=== PATIENT | female | born 1980 | race Caucasian/White ===

== ENCOUNTER 2016-07-14 23:15 | Inpatient (IN) | payer OTHER ==
[2016-07-15 00:29] LABS: BASOPHIL 0.3 % (0-2.0); MCH 31.1 pg (25.7-33.7); MEAN CELL VOLUME 91.4 fl (80-96); MEAN PLT VOLUME 10.5 fl (7.5-11.1); NEUTROPHILS 70.1 % (42.8-82.8); PLATELET COUNT 174 K/MM3 (134-434); RDW 13.4 % (11.6-15.6); WHITE BLOOD COUNT 8.1 K/mm3 (4.0-10.0)
[2016-07-15 00:46] VITALS: BMI 37.1
[2016-07-15 00:48] LABS: INR 1.02 (0.82-1.09); PROTHROMBIN TIME (PATIENT) 11.2 SEC (9.98-11.88)
[2016-07-15 00:51] LABS: ACTIVATED PTT 28.4 SECONDS (26.9-34.4)
[2016-07-15 00:54] LABS: CALCIUM 9.3 mg/dL (8.5-10.1); COCKROFT - GAULT 251.2515; CREATININE 0.5 mg/dL (0.55-1.02)
[2016-07-15] MEDS ORDERED: ELECTROLYTE-148 SOLN 500 ML IV ONE (01:06)
[2016-07-15] MEDS ORDERED: CITRIC ACID/SODIUM CITRATE 30 ML UNIT-DOSE CUP PO ONE (01:06)
--- NOTE | 2016-07-15 01:13 | HP ---
Past Medical History - Admission Chief Complaint: Rupture of membrane History of Present Illness: 36 yo @ 37 weeks gestation, admitted for rupture of membrane. She had one previous and now desires repeat and BTL. She denies any contractions pain nor vaginal bleeding. History Source: Patient Limitations to Obtaining History: No Limitations - Past Medical History ...: 3 ...Para: 1 ...Term: 1 ...Spon : 1 ...LMP: 10/18/15 ... Weeks Gestation by Dates: 38.5 ...EDC by Dates: 07/24/16 ...EDC by Sono: 07/29/16 - Past Surgical History Past Surgical History: Yes: Hx Myomectomy: No Hx Transabdominal Cerclage: No - Smoking History Smoking history: Never smoked Have you smoked in the past 12 months: No Aproximately how many cigarettes per day: 0 - Alcohol/Substance Use Hx Alcohol Use: No History of Substance Use: reports: None - Social History History of Recent Travel: No Home Medications - Allergies Allergies/Adverse Reactions: Allergies Allergy/AdvReac Type Severity Reaction Status Date / Time No Known Allergies Allergy Verified 07/12/16 15:02 - Home Medications Home Medications: Ambulatory Orders Vit/Iron Fumarate/FA [ Tablet] 1 each PO DAILY 07/12/16 Family Disease History - Family Disease History Family History: Unremarkable Review of Systems - Review of Systems Constitutional: reports: No Symptoms Eyes: reports: No Symptoms HENT: reports: No Symptoms Neck: reports: No Symptoms Cardiovascular: reports: No Symptoms Respiratory: reports: No Symptoms Gastrointestinal: reports: No Symptoms Genitourinary: reports: Other (Leakage of fluid) Breasts: reports: No Symptoms Reported Musculoskeletal: reports: No Symptoms Integumentary: reports: No Symptoms Neurological: reports: No Symptoms Psychiatric: reports: No Symptoms Pain Intensity: 1 Physical Exam - Maternity Vital Signs: Vital Signs Temperature 97.6 F 07/15/16 00:29 Pulse Rate 72 07/15/16 00:29 Respiratory Rate 20 07/15/16 00:29 Blood Pressure 128/74 07/15/16 00:29 O2 Sat by Pulse Oximetry (%) Constitutional: Yes: Well Nourished Eyes: Yes: Conjunctiva Clear HENT: Yes: Atraumatic Neck: Yes: Supple Cardiovascular: Yes: Regular Rate and Rhythm Lungs: Clear to auscultation - Abdominal Exam/OB Number of Fetuses: Single Presentation: Vertex Contractions: No - Vaginal Exam/OB Vaginal Bleediing: No Dilatation (cm): 0 Effacement (%): 50 Amniotic Membrane Status: Ruptured Amniotic Fluid: Yes: Clear - Labs Lab Results: CBC, BMP 07/15/16 00:20 07/15/16 00:20
[2016-07-15] MEDS ORDERED: morphine SULFATE/Preservative Free 0.5 MG/ML (1cc Syringe) EP ONE (01:23)
[2016-07-15 02:58] LABS: VENOUS BLOOD GAS HCO3 21.5 meq/L (19-25)
[2016-07-15] MEDS: D5W-LR W/ 20 UNITS OXYTOCIN 1,000 ML IV SCH ×2 (03:00→08:30)
[2016-07-15] MEDS ORDERED: METHYLERGONOVINE MALEATE 0.2 MG/1 ML AMP IM PRN (03:01)
[2016-07-15 03:02] LABS: VENOUS PH 7.34 (7.32-7.42)
--- NOTE | 2016-07-15 03:04 | OP ---
Operative Note - Note: Operative Date: 07/15/16 Pre-Operative Diagnosis: Previous / Rupture of membrane / Multiparity Operation: Repeat Low Transverse / BTL Post-Operative Diagnosis: Same as Pre-op Surgeon: Linsey Amos Multiple Wire Sawyer: Lorenza Orosco Anesthesia: Spinal Specimens Removed: Placenta Estimated Blood Loss (mls): 600
[2016-07-15] MEDS ORDERED: ONDANSETRON 4 MG/2 ML VIAL IVPB PRN (03:19)
[2016-07-15] MEDS ORDERED: IBUPROFEN 600 MG TABLET (FP) PO PRN (03:19)
[2016-07-15] MEDS ORDERED: IBUPROFEN 800 MG/8 ML IJ IVPB PRN (06:04)
[2016-07-15] MEDS ORDERED: TUBERCULIN PPD 5 TU/0.1ML SYRINGE (IN PATIENT USE ONLY) ID ONE ×2 (11:00→11:45)
--- NOTE | 2016-07-15 12:04 | PN ---
Progress Note (short form) - Note Progress Note: Anesthesiology Post-op POD#1 s/p repeat C/S under spinal anesthesia and IV sedation. Pt. awake,feels well, able to move legs, denies paresthesia or headache. Pain under control. VSS.
[2016-07-15] MEDS: IBUPROFEN 600 MG TABLET (FP) PO PRN ×2 (17:03→22:27)
[2016-07-15] MEDS: ACETAMINOPHEN 325 MG TABLET (FP) PO PRN ×2 (17:04→22:26)
[2016-07-15] MEDS: SIMETHICONE 80 MG TAB.CHEW (FP) PO PRN ×2 (17:05→22:26)
[2016-07-16] MEDS ORDERED: BISACODYL 10 MG SUPP.RECT RC PRN (03:01)
[2016-07-16] MEDS ORDERED: DIPHTH,PERTUSS(ACELL),TET 0.5 ML DISP.SYRIN IM ONE (10:00)
[2016-07-16] MEDS ORDERED: INFLUENZA VACCINE 60 MCG/0.5 ML (P/F DISP.SYRIN 16-17) IM ONE (10:00)
[2016-07-16] MEDS: SIMETHICONE 80 MG TAB.CHEW (FP) PO PRN ×2 (12:21→20:37)
[2016-07-16] MEDS: ACETAMINOPHEN 325 MG TABLET (FP) PO PRN ×2 (12:21→20:37)
[2016-07-16] MEDS: IBUPROFEN 600 MG TABLET (FP) PO PRN ×2 (12:22→20:41)
[2016-07-16 16:08] LABS: BASOPHIL 0.9 % (0-2.0); EOSINOPHIL 1.3 % (0-4.5); MCH 30.9 pg (25.7-33.7); MCHC 32.8 g/dl (32.0-36.0); MEAN CELL VOLUME 94.1 fl (80-96); MEAN PLT VOLUME 10.2 fl (7.5-11.1); PLATELET COUNT 172 K/MM3 (134-434); RDW 13.5 % (11.6-15.6); WHITE BLOOD COUNT 10.4 K/mm3 (4.0-10.0)
--- NOTE | 2016-07-16 18:43 | PN ---
Post Progress Note - Subjective Subjective: 36 yo Para 2 status post repeat / BTL, seen and evaluated. She c/o incision pain. Post Day: 1 Type of Delivery: Repeat C/S Vital Signs: Vital Signs Temperature 97.4 F L 07/16/16 07:53 Pulse Rate 84 07/16/16 07:53 Respiratory Rate 20 07/16/16 07:53 Blood Pressure 125/73 07/16/16 07:53 O2 Sat by Pulse Oximetry (%) 100 07/15/16 03:45 Breast Exam: Yes: Soft Uterus: Yes: Fundus Firm Incision: Yes: Dressing dry and intact Abdomen/GI: Yes: Abdomen soft, Tolerating PO Lochia: Yes: Rubra Lochia, amount: Small Extremities: Yes: Calves non-tender Perineum: Yes: Intact Activity: Ambulating - Labs Labs: CBC WBC 10.4 K/mm3 (4.0-10.0) H 07/16/16 08:20 RBC 4.12 M/mm3 (3.60-5.2) 07/16/16 08:20 Hgb 12.7 GM/dL (10.7-15.3) 07/16/16 08:20 Hct 38.8 % (32.4-45.2) 07/16/16 08:20 MCV 94.1 fl (80-96) 07/16/16 08:20 MCHC 32.8 g/dl (32.0-36.0) 07/16/16 08:20 RDW 13.5 % (11.6-15.6) 07/16/16 08:20 Plt Count 172 K/MM3 (134-434) 07/16/16 08:20 MPV 10.2 fl (7.5-11.1) 07/16/16 08:20 Neutrophils % 81.0 % (42.8-82.8) 07/16/16 08:20 Lymphocytes % 11.6 % (8-40) D 07/16/16 08:20 Monocytes % 5.2 % (3.8-10.2) 07/16/16 08:20 Eosinophils % 1.3 % (0-4.5) 07/16/16 08:20 Basophils % 0.9 % (0-2.0) 07/16/16 08:20 Assessment/Plan Status post repeat Stable Ambulation Analgesia PRN pain Continue routine Post op care
[2016-07-17] MEDS: IBUPROFEN 600 MG TABLET (FP) PO PRN ×3 (07:14→23:03)
[2016-07-17] MEDS: ACETAMINOPHEN 325 MG TABLET (FP) PO PRN ×3 (07:14→23:06)
[2016-07-17] MEDS: SIMETHICONE 80 MG TAB.CHEW (FP) PO PRN ×2 (07:14→16:53)
--- NOTE | 2016-07-17 08:46 | PN ---
Post Progress Note - Subjective Subjective: 36 yo Para 2, status post repeat , seen and evaluated. She c/o incision pain. Post Day: 2 Type of Delivery: Repeat C/S Vital Signs: Vital Signs Temperature 97 F L 07/17/16 07:37 Pulse Rate 86 07/17/16 07:37 Respiratory Rate 18 07/17/16 07:37 Blood Pressure 129/75 07/17/16 07:37 O2 Sat by Pulse Oximetry (%) 100 07/15/16 03:45 Breast Exam: Yes: Soft Uterus: Yes: Fundus Firm Incision: Yes: Other (Sterile strips in place) Lochia: Yes: Rubra Lochia, amount: Small Extremities: Yes: Calves non-tender Perineum: Yes: Intact Activity: Ambulating - Labs Labs: CBC WBC 10.4 K/mm3 (4.0-10.0) H 07/16/16 08:20 RBC 4.12 M/mm3 (3.60-5.2) 07/16/16 08:20 Hgb 12.7 GM/dL (10.7-15.3) 07/16/16 08:20 Hct 38.8 % (32.4-45.2) 07/16/16 08:20 MCV 94.1 fl (80-96) 07/16/16 08:20 MCHC 32.8 g/dl (32.0-36.0) 07/16/16 08:20 RDW 13.5 % (11.6-15.6) 07/16/16 08:20 Plt Count 172 K/MM3 (134-434) 07/16/16 08:20 MPV 10.2 fl (7.5-11.1) 07/16/16 08:20 Neutrophils % 81.0 % (42.8-82.8) 07/16/16 08:20 Lymphocytes % 11.6 % (8-40) D 07/16/16 08:20 Monocytes % 5.2 % (3.8-10.2) 07/16/16 08:20 Eosinophils % 1.3 % (0-4.5) 07/16/16 08:20 Basophils % 0.9 % (0-2.0) 07/16/16 08:20 Assessment/Plan Status post repeat Stable Ambulation Analgesia PRN pain Continue routine Post op care Discharge home tomorrow
--- NOTE | 2016-07-17 08:48 | DS ---
Physical Exam-OPERATIONS ARCHITECT Vital Signs: Vital Signs Temperature 97 F L 07/17/16 07:37 Pulse Rate 86 07/17/16 07:37 Respiratory Rate 18 07/17/16 07:37 Blood Pressure 129/75 07/17/16 07:37 O2 Sat by Pulse Oximetry (%) 100 07/15/16 03:45 Constitutional: Yes: Well Nourished Eyes: Yes: Conjunctiva Clear HENT: Yes: Atraumatic Neck: Yes: Supple, Trachea Midline Cardiovascular: Yes: Regular Rate and Rhythm Respiratory: Yes: Regular Gastrointestinal: Yes: Normal Bowel Sounds Vaginal Exam: Yes: Normal Cervix: Yes: Normal Uterus: Yes: Firm Wound/Incision: Yes: Clean/Dry, Well Approximated, Steri Strips (in place) Neurological: Yes: Alert, Oriented ...Motor Strength: WNL Psychiatric: Yes: Alert, Oriented Labs: CBC, BMP 07/16/16 08:20 07/15/16 00:20 Delivery - Delivery Type of Anesthesia: Spinal Episiotomy/Laceration: None EBL (cc): 600 Delivery, Single - Stages of Labor Date 1st Stage Initiatied: 07/14/16 Time 1st Stage Initiated: 22:00 Date of Delivery: 07/15/16 Time of Delivery: 02:09 Time Placenta Delivered: 02:10 - Condition of Infant Neurology Specialist/Aircraft Designer Present: No Gender: Male Weight: 7 lb 9 oz Position: OA Total Hours ROM (Hrs/Mins): 4hrs.10mins - 1 Minute Total Score: 6 5 Minutes Total Score: 9 - Feeding Plan Initial Plan: Exclusive throughout hospitalization Discharge Summary Reason For Visit: REPEAT Current Active Problems Status post repeat low transverse section (Acute) Procedures: Principal: Repeat Low Transverse Other Procedures: Bilateral tubal ligation Hospital Course: Routine Post op care Condition: Good - Instructions Diet, Activity, Other Instructions: Regular diet Wound care No driving, no lifting x 4 weeks. F/U with MD in one week. Referrals: Linsey Amos MD [Staff Physician] - Disposition: HOME - Home Medications Comprehensive Discharge Medication List: Ambulatory Orders Vit/Iron Fumarate/FA [ Tablet] 1 each PO DAILY 07/12/16
--- NOTE | 2016-07-17 13:17 | OP ---
DATE OF OPERATION: 07/15/2016 PREOPERATIVE DIAGNOSIS: Previous section with rupture of membrane. POSTOPERATIVE DIAGNOSIS: Previous section with rupture of membrane. PROCEDURE: Repeat low transverse section and bilateral tubal ligation. SURGEON: Linsey Amos MD FILENET P8 DEVELOPER: Lorenza Orosco DO ANESTHESIA: Spinal. COMPLICATIONS: None. ESTIMATED BLOOD LOSS: 600 mL. PROCEDURE: Patient was taken to the operating room where spinal anesthesia was administered. Patient was then prepped and draped in proper sterile fashion. The 1st attempt at spinal was unsuccessful. After a 2nd successful attempt the patient was prepped and draped in proper sterile fashion. A Pfannenstiel skin incision was made and carried down to the underlying layer of fascia. The fascia was incised in the midline and extended laterally. The superior aspect of the fascial incision was then grasped with a Aric clamp, elevated, and the rectus muscle dissected off bluntly. Attention was then turned to the inferior aspect of the fascial incision which in a similar fashion was then grasped with a Aric clamp, elevated, and the rectus muscle dissected off bluntly. The rectus muscle was then in the midline, the peritoneum identified and entered sharply with the Metzenbaum scissors. Then, this incision was extended laterally and the vesicouterine peritoneum was then grasped with a pickup and entered with the Metzenbaum scissors. This incision was extended laterally and a bladder flap created digitally. The bladder blade was reinserted and the lower uterine segment was then incised using a 10 blade. This incision was extended laterally and the head delivered atraumatically. Nose and mouth were suctioned and the cord clamped and cut. The infant was handed to the awaiting neonatology nurses. The placenta was then removed manually. The uterus exteriorized and cleared of all clots and debris. The uterine incision was repaired using 0 Biosyn. The 2nd layer of the same suture was used as a means to provide excellent hemostasis. Attention was then turned to the fallopian tubes where the right tube was grasped with a Anju. Then, a 3-cm portion of the tube was then tied using plain gut. A 2nd tie was placed to assure hemostasis. Then, a portion of the right tube was then cut and hemostasis was assured using the cautery. The same procedure was performed on the left tube. Then, the pelvis was then completely irrigated. The uterus was then returned to the abdomen. The peritoneum was then closed using 2-0 Biosyn. The fascia was reapproximated using 0 Vicryl in a running fashion. The skin was closed in a subcuticular fashion using 3-0 Vicryl. Patient tolerated procedure well. Patient was then taken to PACU in stable condition. PATHOLOGY: Placenta and portion of right and left tubes. Erich MCDANIELS/[id number] MTDD
[2016-07-18 08:50] LABS: BASOPHIL 0.3 % (0-2.0); EOSINOPHIL 3.4 % (0-4.5); MCH 31.9 pg (25.7-33.7); MCHC 34.2 g/dl (32.0-36.0); MEAN CELL VOLUME 93.1 fl (80-96); MEAN PLT VOLUME 9.3 fl (7.5-11.1); NEUTROPHILS 75.1 % (42.8-82.8); PLATELET COUNT 188 K/MM3 (134-434); RDW 13.5 % (11.6-15.6); WHITE BLOOD COUNT 7.1 K/mm3 (4.0-10.0)
[2016-07-18 10:08] VITALS: BP 113/61; PULSE 77; TEMP 97.9
--- NOTE | 2016-07-21 14:02 | PATH ---
Surgical Pathology Report Patient Name: CHAUNCEY WINTER [facility]. Rec. #: [id number] /Age/Gender: 1980 (Age: 36) / F Account: [id number] Location: [facility] OBS/WIRE MILL OPERATOR Taken: 07/15/2016 Received: 07/15/2016 Reported: 07/21/2016 Physicians: Linsey Amos M.D. Specimen(s) Received A: PLACENTA B: PORTION OF RIGHT FALLOPIAN TUBE C: PORTION OF LEFT FALLOPIAN TUBE Clinical History , 38.5 week gestation, PROM; 1 spontaneous AB, 1 c/section Repeat c/section Final Diagnosis A. PLACENTA, DELIVERY: FOCALLY DISRUPTED THIRD TRIMESTER PLACENTA WITH MILD PREVILLOUS, PERIVILLOUS, AND PRECHORIONIC FIBRIN DEPOSITION, THREE VESSEL UMBILICAL CORD, AND PLACENTAL MEMBRANES WITH AMNION HYPERPLASIA AND CIRCUMMARGINATE INSERTION. B. PORTION OF FALLOPIAN TUBE, RIGHT, LIGATION: SEGMENT OF FALLOPIAN TUBE WITH COMPLETE CROSS SECTION. C. PORTION OF FALLOPIAN TUBE, LEFT, LIGATION: SEGMENT OF FALLOPIAN TUBE WITH COMPLETE CROSS SECTION. Electronically Signed Mike Morales M.D. Gross Description A. The specimen is received fresh, labeled "placenta" and is a 548 gram, 16.5 x 16.0 x 2.5 cm placenta with attached membranes and umbilical cord. The attached membranes are wilkins, translucent with focal opacities and display circummarginate insertion. The umbilical cord measures 31 cm. in length and averages 1 cm in diameter. The cord inserts eccentrically, 5.5 cm. to the nearest margin. No true knots or strictures are identified. Cut surface of the umbilical cord reveals 3 vessels. The surface is greenfield-blue with fibrin deposition and appropriate caliber vessels. The maternal surface is red-brown with focal defects. Sectioning reveals red-brown, spongy parenchyma. No focal lesions are identified. Table Games Floor Supervisor sections are submitted in three cassettes as follows: 1- membrane rolls and umbilical cord; 2-3- full thickness sections of placenta. B. Received in formalin labeled "portion of right fallopian tube" is a 1.1 cm in length portion of fallopian tube. No fimbriae are present. The outer surface is wilkins-morales and smooth. Sectioning reveals an unremarkable lumen. Table Games Floor Supervisor sections are submitted in one cassette. C. Received in formalin labeled "portion of left fallopian tube" is a 1.4 cm in length portion of fallopian tube. No fimbriae are present. The outer surface is wilkins-morales and smooth. Sectioning reveals an unremarkable lumen. Table Games Floor Supervisor sections are submitted in one cassette. 07/20/2016 [facility]07/20/2016
== END 2016-07-18 11:00 | disposition home or self-care (01) | DRG 540 ==
LOC: JDEL 23:15 → JLDR 23:25 → J3W 07-15 05:20
PROVIDERS: ADMIT Obstetrics & Gynecology; ATTEND Obstetrics & Gynecology
PROC: 10D00Z1 Extraction of Products of Conception, Low, Open Approach (ICD-10-PCS; principal; 2016-07-15)
PROC: 0UL70ZZ Occlusion of Bilateral Fallopian Tubes, Open Approach (ICD-10-PCS; 2016-07-15)
DX: O34.211 Maternal care for low transverse scar from previous cesarean delivery (principal); Z30.2 Encounter for sterilization; Z3A.37 37 weeks gestation of pregnancy; Z37.0 Single live birth
CPT/HCPCS: 36415; 80048; 82803; 85025; 85610; 85730; 86593; 86850; 86900; 86901; 88302-TC; 88307-TC; 90686; 90715; G0008

== ENCOUNTER 2020-10-07 18:27 | Emergency (ER) | payer OTHER ==
[2020-10-07 18:35] VITALS: BP 113/65; PULSE 67; TEMP 98.3; BMI 30.7
[2020-10-07 20:10] LABS: EPI CELLS 6 /uL (0-25.1); HYALINE CASTS 0 /uL (0-3.1); URINE APPEARANCE CLEAR; URINE BILIRUBIN NEGATIVE (NEGATIVE); URINE COLOR DK YELLOW; URINE GLUCOSE (UA) NEGATIVE (NEGATIVE); URINE KETONE TRACE (NEGATIVE); URINE LEUK ESTERASE NEGATIVE (NEGATIVE); URINE NITRITE POSITIVE (NEGATIVE); URINE PROTEIN NEGATIVE (NEGATIVE); URINE RBC 11 /uL (0-23.9); URINE WBC 5 /uL (0-25.8)
[2020-10-07 23:26] LABS: URINE BACTERIA 55.9 /uL (0-1359)
== END 2020-10-07 20:35 | disposition home or self-care (01) ==
LOC: JERFT 18:27
DX: N30.00 Acute cystitis without hematuria (principal)
CPT/HCPCS: 81003; 84703; 87086; 99283-25